=== PATIENT | female | born 1990 | race American Indian/Alaskan Native ===

== ENCOUNTER 2019-07-30 15:43 | Emergency (ER) | payer SELFPAY ==
[2019-07-30 16:09] VITALS: BP 106/71
--- NOTE | 2019-07-30 16:11 | Event Note ---
ED Screening Note Date of service: 07/30/19 Time: 16:08 ED Screening Note: 29 y/o vaginal discharge times a couple weeks ago. Dysuria time 4 months. Having back pain. 11/30 This initial assessment/diagnostic orders/clinical plan/treatment(s) is/are subject to change based on patients health status, clinical progression and re- assessment by fellow clinical providers in the ED. Further treatment and workup at subsequent clinical providers discretion. Patient/guardian urged not to elope from the ED as their condition may be serious if not clinically assessed and managed. Initial orders include:
--- NOTE | 2019-07-30 16:20 | Emergency Department Report ---
ED Female HPI - General Chief complaint: Urogenital-Female Stated complaint: UTI/BACTERIA INFECTION Time Seen by Provider: 07/30/19 16:07 Source: patient Mode of arrival: Ambulatory Limitations: No Limitations - History of Present Illness Initial comments: Mrs. Valencia is a 29-year-old female who presents with symptoms of UTI. She does not have a significant past medical history. She has dysuria urgency frequent urination for several weeks. She also has back pain. She also is concerned for a bacterial infection in her vagina. She has a clear discharge with minor irritation. She also anticipates that she will develop yeast infection when she started to take antibiotics. MD Complaint: vaginal discharge, dysuria -: Gradual, week(s) (several) Location: labia, suprapubic Radiation: non-radiating Severity: mild Severity scale (0 -10): 2 Quality: dull Consistency: constant Improves with: none Worsens with: urination Are you Now?: No Associated Symptoms: vaginal discharge, dysuria - Related Data Previous Rx's Medication Instructions Recorded Last Taken Type Fluconazole [Diflucan TAB] 150 mg PO ONCE #1 tablet 07/30/19 Unknown Rx cephALEXin [Keflex] 500 mg PO QID 7 Days #28 cap 07/30/19 Unknown Rx metroNIDAZOLE [Flagyl] 500 mg PO Q12HR 7 Days #14 tab 07/30/19 Unknown Rx Allergies Allergy/AdvReac Type Severity Reaction Status Date / Time No Known Allergies Allergy Unverified 07/30/19 15:45 ED Review of Systems ROS: Stated complaint: UTI/BACTERIA INFECTION Other details as noted in HPI Gastrointestinal: denies: abdominal pain, nausea, vomiting Genitourinary: urgency, dysuria, frequency, discharge. denies: hematuria, abnormal menses Musculoskeletal: back pain ED Past Medical Hx - Past Medical History Previous Medical History?: No - Surgical History Past Surgical History?: No - Social History Smoking Status: Current Every Day Smoker Substance Use Type: None - Medications Home Medications: Home Medications Medication Instructions Recorded Confirmed Last Taken Type Fluconazole [Diflucan TAB] 150 mg PO ONCE #1 tablet 07/30/19 Unknown Rx cephALEXin [Keflex] 500 mg PO QID 7 Days #28 cap 07/30/19 Unknown Rx metroNIDAZOLE [Flagyl] 500 mg PO Q12HR 7 Days #14 tab 07/30/19 Unknown Rx ED Physical Exam - General Limitations: No Limitations General appearance: alert, in no apparent distress, other (appears well appears comfortable appears healthy) - Head Head exam: Present: atraumatic, normocephalic - Eye Eye exam: Present: normal appearance - ENT ENT exam: Present: mucous membranes moist - Neck Neck exam: Present: normal inspection, full ROM - Respiratory Respiratory exam: Present: normal lung sounds bilaterally. Absent: respiratory distress, wheezes, rales, stridor - Cardiovascular Cardiovascular Exam: Present: regular rate, normal rhythm, normal heart sounds. Absent: systolic murmur, diastolic murmur, rubs, gallop - GI/Abdominal GI/Abdominal exam: Present: soft, normal bowel sounds. Absent: distended, tenderness, guarding, rebound - Extremities Exam Extremities exam: Present: normal inspection - Back Exam Back exam: Present: normal inspection, full ROM. Absent: tenderness, CVA tenderness (R), CVA tenderness (L), muscle spasm - Neurological Exam Neurological exam: Present: alert, oriented X3 - Psychiatric Psychiatric exam: Present: normal affect, normal mood - Skin Skin exam: Present: warm, dry, intact, normal color. Absent: rash ED Course Vital Signs 07/30/19 16:08 Temperature 98.4 F Pulse Rate 78 Respiratory 16 Rate Blood Pressure 106/71 O2 Sat by Pulse 100 Oximetry ED Medical Decision Making - Medical Decision Making 1. UTI prescription cephalexin 2. Bacterial vaginosis prescription Flagyl and prophylactic fluconazole Critical care attestation.: If time is entered above; I have spent that time in minutes in the direct care of this critically ill patient, excluding procedure time. ED Disposition Clinical Impression: UTI (urinary tract infection), Bacterial vaginosis Disposition: DC- TO HOME OR SELFCARE Is pt being admited?: No Does the pt Need Aspirin: No Condition: Stable Instructions: Bacterial Vaginosis (ED), Urinary Tract Infection in Women (ED) Prescriptions: Fluconazole [Diflucan TAB] 150 mg PO ONCE #1 tablet metroNIDAZOLE [Flagyl] 500 mg PO Q12HR 7 Days #14 tab cephALEXin [Keflex] 500 mg PO QID 7 Days #28 cap Referrals: [facility] [Outside] - 3-5 Days
== END 2019-07-30 17:24 | disposition home or self-care (01) ==
LOC: ED 15:43
DX: N76.0 Acute vaginitis (principal); B96.89 Other specified bacterial agents as the cause of diseases classified elsewhere; N39.0 Urinary tract infection, site not specified; F17.200 Nicotine dependence, unspecified, uncomplicated